=== PATIENT | male | born 1945 | race Two or more races ===

== ENCOUNTER 2024-03-27 02:32 | Emergency (ER) | payer OTHER ==
[~2024-03-27] VITALS: Ht 170.2 cm; Wt 77.1 kg
[2024-03-27] MEDS ORDERED: COZAAR25 MG PO (02:49)
[2024-03-27] MEDS ORDERED: GLUMETZA500 MG (02:49)
== END 2024-03-27 06:38 | disposition home or self-care (01) ==
LOC: ER 02:34
DX: T14.90XA Injury, unspecified, initial encounter (principal); V43.52XA Car driver injured in collision with other type car in traffic accident, initial encounter; Y93.89 Activity, other specified; Y92.413 State road as the place of occurrence of the external cause